=== PATIENT | female | born 1975 | race Caucasian/White ===

== ENCOUNTER 2021-10-09 13:41 | Emergency (ER) | payer OTHER, MEDICARE ==
[~2021-10-09 13:41] MED LIST: Iopamidol-370 76% 500 ML 1 ML ONE
[2021-10-09] MEDS ORDERED: Ketorolac Tromethamine 30 MG/ML VIAL ONE (14:34)
[2021-10-09] MEDS ORDERED: Cyclobenzaprine 10 MG TAB ONE (15:25)
== END 2021-10-09 15:24 | disposition home or self-care (01) ==
LOC: ERS 13:41
DX: S80.811A Abrasion, right lower leg, initial encounter (principal); S60.222A Contusion of left hand, initial encounter; S10.93XA Contusion of unspecified part of neck, initial encounter; V49.9XXA Car occupant (driver) (passenger) injured in unspecified traffic accident, initial encounter; F17.210 Nicotine dependence, cigarettes, uncomplicated
CPT/HCPCS: 70450; 71260; 72125; 74177; 93005; 96374; J1885; Q9967